=== PATIENT | male | born 1965 | race Hispanic/Latino ===

== ENCOUNTER 2018-12-04 03:43 | Emergency (ER) | payer OTHER ==
[2018-12-04] MEDS ORDERED: TETRACAINE HCL 0.5% 4 ML OPHTH SOLN ONE (04:46)
[2018-12-04] MEDS ORDERED: FLUORESCEIN SODIUM 1 STRIP STRIP ONE (04:46)
[2018-12-04] MEDS ORDERED: IBUPROFEN 600 MG TABLET ONE (05:38)
[2018-12-04] MEDS ORDERED: TOBRAMYCIN/DEXAMETHASONE OPTH SUSP 2.5 ML BOT ONE (05:38)
== END 2018-12-04 05:53 | disposition home or self-care (01) ==
LOC: EDH 03:43
DX: H10.9 Unspecified conjunctivitis (principal); H66.91 Otitis media, unspecified, right ear; Z87.891 Personal history of nicotine dependence